=== PATIENT | female | born 2000 | race Caucasian/White ===

== ENCOUNTER 2025-08-21 06:21 | Day surgery (SDC) | payer OTHER, SELFPAY | END 2025-08-21 09:27 | disposition home or self-care (01) | LOC: GI 06:21 | PROVIDERS: ATTENDING PHYSICIAN Internal Medicine Gastroenterology | DX: K62.5 Hemorrhage of anus and rectum (principal); R19.4 Change in bowel habit; K64.9 Unspecified hemorrhoids; K51.211 Ulcerative (chronic) proctitis with rectal bleeding; K62.89 Other specified diseases of anus and rectum | CPT/HCPCS: 45380; 88305 ==